=== PATIENT | female | born 1980 | race African-American/Black ===

== ENCOUNTER 2016-06-13 15:26 | Emergency (ER) | payer OTHER ==
[~2016-06-13] VITALS: Ht 149.9 cm; Wt 63.5 kg
[~2016-06-13 15:26] MED LIST: CIPR500T89 PO; IBUP80TA PO; PERCOCET PO; TRI-TAB PO
[2016-06-13] MEDS ORDERED: SERT50TA PO (15:43)
[2016-06-13] MEDS ORDERED: WELLTAB38 PO (15:43)
[2016-06-13] MEDS ORDERED: VITA100037 PO (15:43)
[2016-06-13] MEDS ORDERED: AMBI10TA PO (15:43)
[2016-06-13] MEDS ORDERED: HYDR10T PO (15:43)
[2016-06-13] MEDS ORDERED: MINI1CAP PO (15:43)
[2016-06-13] MEDS ORDERED: EXPOSURE KIT-ADULT 7 DAY SUPPLY PO ONE (16:15)
[2016-06-13] MEDS ORDERED: AZITHROMYCIN 250 MG TAB PO ONE (16:15)
[2016-06-13] MEDS ORDERED: metroNIDAZOLE (FLAGYL) 500 MG TAB PO ONE ×2 (16:15→17:45)
[2016-06-13] MEDS ORDERED: cefTRIAXone SOD 250 MG VIAL (J0696) IM ONE (16:15)
[2016-06-13 16:40] LABS: BASO % 0.3 % (0.0-1.0); EOS # 0.2 K/mm3 (0.0-0.50); EOS % 2.1 % (0.0-3.0); LARGE UNSTAINED CELL # 0.2 K/mm3 (0.0-0.4); LARGE UNSTAINED CELL % 1.7 % (0.0-4.0); LYMPH # 2.5 K/mm3 (1.5-4.5); LYMPH % 25.6 % (24.0-44.0); MEAN CORPUSCULAR HEMOGLOBIN 29.6 pg (27.0-33.0); MEAN CORPUSCULAR HGB CONC 32.2 g/dl (32.0-36.5); MEAN CORPUSCULAR VOLUME 92.1 fl (80.0-96.0); MONO # 0.4 K/mm3 (0.0-0.8); NEUTROPHILS # 5.9 K/mm3 (1.8-7.7); NEUTROPHILS % 65.4 % (36.0-66.0); PLATELET COUNT, AUTOMATED 282 k/mm3 (150-450); RED CELL DISTRIBUTION WIDTH 12.5 % (11.5-14.5)
[2016-06-13 17:14] LABS: ALBUMIN 4.3 GM/DL (3.2-5.2); ALBUMIN/GLOBULIN RATIO 1.16 (1.00-1.93); ALKALINE PHOSPHATASE 56 U/L (45-117); ALT/SGPT 21 U/L (12-78); ANION GAP 9 MEQ/L (8-16); AST/SGOT 7 U/L (15-37); BILIRUBIN,TOTAL 0.3 MG/DL (0.2-1.0); BLOOD UREA NITROGEN 15 MG/DL (7-18); CARBON DIOXIDE LEVEL 24 MEQ/L (21-32); CHLORIDE LEVEL 107 MEQ/L (98-107); CREATININE FOR GFR 0.85 MG/DL (0.55-1.02); GLOMERULAR FILTRATION RATE > 60.0 (>60); GLUCOSE, FASTING 104 MG/DL (70-105); POTASSIUM SERUM 4.1 MEQ/L (3.5-5.1); SODIUM LEVEL 140 MEQ/L (136-145)
[2016-06-13] MEDS ORDERED: TRUVTAB3 PO (17:23)
[2016-06-13] MEDS ORDERED: RALT40TA PO (17:23)
[2016-06-13 17:27] LABS: CONTROL LINE INT CTR LINE PRESENT; HIV SCRN NEGATIVE (NEGATIVE); HIV SCRN1 NEGATIVE (NEGATIVE)
[2016-06-13] MEDS ORDERED: FLAG500T PO (17:39)
[2016-06-13] MEDS ORDERED: LIDOCAINE 1% MDV 20ML VIAL As Ordered ONE (17:48)
[2016-06-13 18:37] VITALS: BP 118/68
[2016-06-15 10:46] LABS: HEPATITIS B SURFACE ANTIBODY POSITIVE (POSITIVE)
== END 2016-06-13 18:47 | disposition home or self-care (01) ==
LOC: M ED 16:05
DX: R10.2 Pelvic and perineal pain (principal); T76.21XA Adult sexual abuse, suspected, initial encounter; Z79.899 Other long term (current) drug therapy; Z91.040 Latex allergy status
CPT/HCPCS: 36415; 80053; 85025; 86706; 86780; 86803; 87210; 87340; 87806; 96372; 99284; J0696

== ENCOUNTER 2016-09-07 16:24 | Emergency (ER) | payer OTHER ==
[~2016-09-07] VITALS: Ht 149.9 cm; Wt 68.2 kg
[2016-09-07 16:24] VITALS: BP 109/62
[~2016-09-07 16:24] MED LIST changes: +AMBI10TA PO; +CIPR-249 PO; -CIPR500T89 PO; +FLAG500T PO; +HYDR-643 PO; +MINI1CAP PO; +RALT40TA PO; +SERT50TA PO; +TRUVTAB PO; +VITA100067 PO; +WELLTAB38 PO
== END 2016-09-07 17:09 | disposition left against medical advice (07) ==
LOC: M ED 16:24
DX: Z53.29 Procedure and treatment not carried out because of patient's decision for other reasons (principal)

== ENCOUNTER → 2019-10-01 | Outpatient (REF) | payer OTHER ==
[~2019-10-01] MED LIST changes: +OXYC1TAB23 PO; +SERT-141 PO; -SERT50TA PO
[2019-11-12 09:44] LABS: CHLAMYDIA DNA AMPLIFICATION NEGATIVE (NEGATIVE); GC DNA AMPLIFICATION NEGATIVE (NEGATIVE)
== END ==
LOC: M WUC 11:29
PROVIDERS: ATTEND Physician Assistant
DX: Z11.3 Encounter for screening for infections with a predominantly sexual mode of transmission (principal); N76.0 Acute vaginitis

== ENCOUNTER → 2020-03-04 | Outpatient (REF) | payer SELFPAY | LOC: M LAB REF 17:25 | PROVIDERS: ATTEND Physician Assistant Medical | DX: Z20.822 Contact with and (suspected) exposure to COVID-19 (principal) ==

== ENCOUNTER 2020-08-13 19:56 | Emergency (ER) | payer OTHER, SELFPAY ==
[~2020-08-13] VITALS: Ht 157.5 cm; Wt 73.4 kg
[~2020-08-13 19:56] MED LIST changes: +EMTR1TAB16 PO; -TRUVTAB PO
[2020-08-13] MEDS ORDERED: ESTR1TAB PO (20:06)
[2020-08-13 22:19] LABS: BASO % 0.1 % (0.0-1.0); HEMATOCRIT 34.8 % (36.0-47.0); LYMPH # 1.1 10^3/uL (1.5-5.0); LYMPH % 11.6 % (24.0-44.0); MEAN CORPUSCULAR HEMOGLOBIN 29.8 pg (27.0-33.0); MEAN CORPUSCULAR HGB CONC 31.6 g/dl (32.0-36.5); MEAN CORPUSCULAR VOLUME 94.3 fl (80.0-96.0); MONO # 0.4 10^3/uL (0.0-0.8); MONO % 4.2 % (2.0-8.0); NEUTROPHILS # 7.9 10^3/uL (1.5-8.5); NEUTROPHILS % 83.7 % (36.0-66.0); PLATELET COUNT, AUTOMATED 271 10^3/uL (150-450); RED BLOOD COUNT 3.69 10^6/uL (4.00-5.40); WHITE BLOOD COUNT 9.5 10^3/uL (4.0-10.0)
[2020-08-13] MEDS ORDERED: ONDANSETRON 4MG/2ML VIAL IV ONE (22:20)
[2020-08-13 22:35] LABS: INR 0.92; PROTHROMBIN TIME 12.5 SECONDS (12.5-14.3)
[2020-08-13 22:42] LABS: BLOOD UREA NITROGEN 18 MG/DL (7-18); CALCIUM LEVEL 9.2 MG/DL (8.5-10.1); CARBON DIOXIDE LEVEL 26 MEQ/L (21-32); CHLORIDE LEVEL 111 MEQ/L (98-107); GLOMERULAR FILTRATION RATE > 60.0 (>58); GLUCOSE, FASTING 150 MG/DL (70-100); POTASSIUM SERUM 4.6 MEQ/L (3.5-5.1); SODIUM LEVEL 141 MEQ/L (136-145)
[2020-08-13] MEDS ORDERED: NS 1,000 ML IV ONE (22:50)
[2020-08-13] MEDS ORDERED: ISOVUE-370 76% 100ML VIAL As Ordered ONE (22:50)
[2020-08-13] MEDS: MORPHINE 4 MG/ML 1ML VIAL/SYRINGE (J2270) IV PRN (23:15)
--- NOTE | 2020-08-14 00:12 | REPVR ---
PROCEDURE INFORMATION: Exam: CT Chest With Contrast; Diagnostic Exam date and time: 08/13/2020 10:17 PM Age: 40 years old Clinical indication: Pain; Left-sided; Prior surgery; Surgery date: Post-operative (0-2 days); Surgery type: status post left breast lumpectomy; Additional info: Left breast biopsy, severe pain/swelling TECHNIQUE: Imaging protocol: Diagnostic computed tomography of the chest with contrast. 3D rendering (Not supervised by radiologist): MIP and/or 3D reconstructed images were created by the technologist. Radiation optimization: All CT scans at this facility use at least one of these dose optimization techniques: automated exposure control; mA and/or kV adjustment per patient size (includes targeted exams where dose is matched to clinical indication); or iterative reconstruction. Contrast material: ISO; Contrast volume: 75 ml; Contrast route: INTRAVENOUS (IV); COMPARISON: 1. US THYROID, SOFT TISSUE HEAD/NECK - OUTSIDE PRIOR 04/23/2020 2:18:[address] NECK W/ CONTRAST - OUTSIDE PRIOR 04/23/2020 1:55:00 PM (The reports from these studies were not available for review at the time of this interpretation.) FINDINGS: Thyroid: There is a 2.8 cm solid and cystic nodule in the upper to midpole of the right lobe of the thyroid gland (image 53 of the coronal series 203). Trachea: Normal. Bronchial tree: Normal. Lungs: The lungs are clear. There is no lung consolidation, pulmonary infarct, or mass. No emphysematous changes or interstitial lung disease is noted. Pleural spaces: Normal. No pneumothorax or pleural effusion. Heart: No cardiomegaly. No pericardial effusion. Mediastinal space: No mediastinal fluid collection or pneumomediastinum is noted. Pulmonary arteries: There is no pulmonary embolism in the main, lobar, or segmental pulmonary arteries. The timing of the contrast bolus was suboptimal for the assessment of the subsegmental pulmonary arteries, which are poorly opacified. Aorta: The thoracic aorta is intact and patent. There is no thoracic aortic aneurysm, pseudoaneurysm, penetrating atherosclerotic ulcer, intramural hematoma, or dissection. Great vessels off aortic arch: The brachiocephalic artery, imaged proximal portions of the common carotid arteries, imaged proximal portions of the vertebral arteries, and right subclavian artery are intact. No stenosis or occlusion of these vessels is noted. The left subclavian artery is obscured by streak artifact from contrast material in the left subclavian vein. Incidental note is made of a bovine aortic arch, with common origin of the brachiocephalic artery and left common carotid artery from the aortic arch, which is a normal variant. Lymph nodes: No enlarged lymph nodes. Diaphragm: Intact. Liver: The attenuation of the liver is more than 40 Hounsfield units lower in attenuation compared to the spleen, which is compatible with fatty liver infiltration. The liver was not fully imaged. Gallbladder and bile ducts: No calcified gallstones are noted. No gallbladder wall thickening, pericholecystic fluid, or pericholecystic inflammatory changes are identified. Adrenal glands: Normal. No adrenal mass is noted. Bones/joints: There is no fracture or dislocation. No suspicious osteolytic or osteoblastic lesion. Soft tissues: There is a 9.2 cm x 7.3 cm x 10.7 cm acute hematoma in the left breast, which measures approximately 53 Hounsfield units. Foci of gas are noted in the left breast and there is soft tissue edema and thickening of the skin of the left breast. IMPRESSION: 1. 9.2 cm x 7.3 cm x 10.7 cm acute hematoma in the left breast and soft tissue swelling, foci of gas, and edema in the left breast with overlying skin thickening. The hematoma limits the evaluation for an underlying mass in the left breast. 2. 2.8 cm solid and cystic nodule in the upper to midpole of the right lobe of the thyroid gland, which is stable compared to the prior CT neck on 04/23/2020. 3. Fatty liver. COMMENTS: Consistent with the [employer]'s Incidental Findings Committee white paper (J Am Abraham Radiol 2015): In patients aged 35 years and older with an incidental thyroid nodule equal to or greater than 1.[address], MRI or extrathyroidal US, further evaluation with dedicated thyroid US is recommended for patients with normal life expectancy and without comorbidities. For smaller nodules without suspicious features, no further evaluation or follow up is recommended. Electronically signed by: Ziyad Galvez On 08/14/2020 00:11:50 AM
[2020-08-14] MEDS: MORPHINE 4 MG/ML 1ML VIAL/SYRINGE (J2270) IV PRN (01:14)
[2020-08-14 02:03] LABS: RSV AMPLIFICATION NEGATIVE (NEGATIVE)
[2020-08-14 02:27] VITALS: BP 120/56
== END 2020-08-14 02:30 | disposition short-term general hospital (02) ==
LOC: M ED 19:56
DX: L76.32 Postprocedural hematoma of skin and subcutaneous tissue following other procedure (principal); F43.10 Post-traumatic stress disorder, unspecified; Z86.000 Personal history of in-situ neoplasm of breast; Z79.890 Hormone replacement therapy; Z79.899 Other long term (current) drug therapy; Z91.040 Latex allergy status; Z98.890 Other specified postprocedural states
CPT/HCPCS: 36415; 71260; 80048; 85025; 85610; 85730; 86140; 86850; 86900; 86901; 87631; 96374; 99285; J2270; J2405; Q9967

== ENCOUNTER → 2020-09-26 | Outpatient (CLI) | payer OTHER ==
[~2020-09-26] MED LIST changes: +ESTR1TAB PO; +LIDOCAINE 1% MDV 20ML VIAL As Ordered ONE
[2020-09-26 14:42] VITALS: BP 168/94
--- NOTE | 2020-09-26 15:08 | REP ---
INDICATION: PRESCAN FOR BX. COMPARISON: 04/23/2020. TECHNIQUE: Multiple ultrasonographic images of the thyroid. FINDINGS: The thyroid right lobe measures 5.7 x 2.9 x 2.7 cm. The thyroid left lobe measures 4.2 x 1.8 x 1.6 cm. The isthmus measures 6 mm in thickness. The thyroid is similar size to the prior study. Right lobe: In the thyroid right lobe, at the midpole, there is a complex cyst with solid and cystic components measuring 3.2 x 2.7 x 2.6 cm. On the previous study this measured 3.1 x 2.4 x 2.2 cm. Additionally, there is a 2nd nodule in the thyroid right lobe at the lower pole measuring 8 x 6 x 5 mm. This previously measured 6 x 5 x 3 mm. The right lobe thyroid parenchyma is otherwise homogeneous. Left lobe: The left lobe is diffusely homogeneous. There are no nodules, cysts or masses. IMPRESSION: There are 2 nodules in the right thyroid lobe as described above. Both nodules appear slightly larger than on the comparison study. <Electronically signed by Bernard Wilburn > 09/26/20 [id number]
--- NOTE | 2020-09-26 17:18 | REP ---
INDICATION: NODULE RT LOBE. COMPARISON: None. TECHNIQUE: Was performed under the direct supervision of Dr. Grullon. Patient has a history of a 3.2 x 2.7 x 2.6 cm complex cystic with solid and cystic components in the midpole of the right thyroid seen on a previous ultrasound performed earlier today. The risks and benefits of the procedure were explained to the patient and informed consent was obtained. The right thyroid nodule was localized using ultrasound guidance. The skin was prepped and draped in a sterile fashion. 4 mL of 1% lidocaine was used as a local anesthetic. Using ultrasound guidance 4 fine-needle aspirations were obtained using 25 gauge needles. The patient tolerated the procedure well and there were no immediate complications. After the appropriate amount to monitor convalescence the patient was discharged from the department. FINDINGS: None IMPRESSION: Ultrasound-guided right thyroid biopsy. <Electronically signed by Edgardo Parrish > 09/26/20 [id number] <Electronically signed by Bernard Grullon > 09/26/20 [id number]
== END ==
LOC: M IRPRO 13:48
PROVIDERS: ATTEND Physician Assistant Medical
DX: D34 Benign neoplasm of thyroid gland (principal)

== ENCOUNTER → 2020-12-01 | Outpatient (REF) | payer SELFPAY ==
[~2020-12-01] MED LIST changes: -LIDOCAINE 1% MDV 20ML VIAL As Ordered ONE
[2020-12-01 16:45] LABS: APPEARANCE, URINE CLOUDY (CLEAR); BACTERIA, URINE AUTO 2+ (NEGATIVE); BILIRUBIN, URINE AUTO NEGATIVE (NEGATIVE); BLOOD, URINE BLOOD 2+ (NEGATIVE); CALCIUM OXALATE CRYSTALS MODERATE; COLOR, URINE YELLOW (YELLOW); GLUCOSE, URINE (UA) AUTO NEGATIVE (NEGATIVE); KETONE, URINE AUTO TRACE mg/dL (NEGATIVE); LEUKOCYTE ESTERASE, URINE AUTO 3+ (NEGATIVE); MUCUS, URINE MODERATE (NEGATIVE); NITRITE, URINE AUTO NEGATIVE (NEGATIVE); PROTEIN, URINE AUTO 3+ mg/dL (NEGATIVE); RBC, URINE AUTO 107 /HPF (0-3); SPECIFIC GRAVITY URINE AUTO 1.023 (1.002-1.035); SQUAMOUS EPITHELIAL CELL UR AU 7 /HPF (0-6); UROBILINOGEN, URINE AUTO 0.2 mg/dL (0.0-2.0); WBC, URINE AUTO TNTC /HPF (0-3)
== END ==
LOC: M LAB REF 16:21
PROVIDERS: ATTEND Physician Assistant
DX: N39.0 Urinary tract infection, site not specified (principal)